=== PATIENT | male | born 1960 | race Caucasian/White ===

== ENCOUNTER 2018-03-05 14:58 | Emergency (ER) | payer OTHER | END 2018-03-05 15:21 | disposition home or self-care (01) | LOC: ERS 14:58 | DX: S60.466A Insect bite (nonvenomous) of right little finger, initial encounter (principal); W57.XXXA Bitten or stung by nonvenomous insect and other nonvenomous arthropods, initial encounter | CPT/HCPCS: 99282 ==

== ENCOUNTER 2020-02-07 00:14 | Emergency (ER) | payer OTHER, SELFPAY ==
[2020-02-07] MEDS ORDERED: Proparacaine 0.5% Opth 15 ML BOT ONE (00:22)
[2020-02-07] MEDS ORDERED: Fluorescein Opthalmic Strip ONE (00:22)
== END 2020-02-07 00:40 | disposition home or self-care (01) ==
LOC: ERS 00:14
DX: T15.12XA Foreign body in conjunctival sac, left eye, initial encounter (principal); I48.91 Unspecified atrial fibrillation; F43.10 Post-traumatic stress disorder, unspecified
CPT/HCPCS: 99283

== ENCOUNTER 2023-10-11 14:10 | Outpatient (CLI) | payer OTHER | END 2023-10-11 14:11 | disposition home or self-care (01) | LOC: BICMRI 14:10 | PROVIDERS: ATTEND Orthopaedic Surgery | DX: S49.91XA Unspecified injury of right shoulder and upper arm, initial encounter (principal); S46.211A Strain of muscle, fascia and tendon of other parts of biceps, right arm, initial encounter; S43.401A Unspecified sprain of right shoulder joint, initial encounter | CPT/HCPCS: 70210 ==

== ENCOUNTER 2023-11-09 16:24 | Outpatient (CLI) | payer OTHER ==
[2023-11-09 17:10] LABS: #Eosinphils 0.1 10x3/uL (0.0-0.5); #Monocytes 0.8 10x3/uL (0.0-1.1); #Neutrophils 4.3 10x3/uL (1.5-8.4); %Basophils 0.3 % (0.0-2.0); %Lymphocytes 26.5 % (18.0-47.0); %Monocytes 10.5 % (0.0-10.0); %Neutrophils 60.6 % (40.0-75.0); Hemoglobin 16.8 g/dL (13.5-17.5); Mean Corpuscular Hemoglobin 32.2 pg (27.0-33.0); Mean Corpuscular Volume 92.1 fl (81.2-95.1); Mean Platelet Volume 10.6 fl (7.4-10.4); Platelet Count 191 10x3/uL (150-450); RBC Distribution Width 12.1 % (11.5-14.5); Red Blood Cell (RBC) Count 5.21 10x6/uL (4.32-5.72); White Blood Cell (WBC) Count 7.2 10x3/uL (3.5-10.5)
[2023-11-09 17:54] LABS: Anion Gap 12 mmol/L (10-20); BUN (Urea Nitrogen) 12 mg/dL (8.4-25.7); Calc. Creatinine Clearance 0 mL/min (70-130); Calcium 8.9 mg/dL (7.8-10.44); Carbon Dioxide 23 mmol/L (23-31); Chloride 103 mmol/L (98-107); Estimated GFR 86; Glucose 83 mg/dL (80-115); Potassium 4.3 mmol/L (3.5-5.1); Sodium 134 mmol/L (136-145)
== END 2023-11-09 16:25 | disposition home or self-care (01) ==
LOC: LABBT 16:24
PROVIDERS: ATTEND Orthopaedic Surgery
DX: Z01.818 Encounter for other preprocedural examination (principal); S46.011A Strain of muscle(s) and tendon(s) of the rotator cuff of right shoulder, initial encounter; M75.21 Bicipital tendinitis, right shoulder
CPT/HCPCS: 80048; 85025; 93005; 93010

== ENCOUNTER 2023-11-25 09:34 | Day surgery (SDC) | payer OTHER ==
[2023-11-09 16:57] VITALS: BMI 27.6
[2023-11-25] MEDS ORDERED: Ropivacaine 0.5% HCl/PF (150 MG/30 ML VIAL) ONE (10:50)
[2023-11-25] MEDS ORDERED: fentaNYL 50 mcg/mL 1 mL Vial ONE ×3 (10:50→12:38)
[2023-11-25] MEDS ORDERED: Midazolam HCl 2 mg/2 ml Vial ONE (10:50)
[2023-11-25] MEDS ORDERED: EPINEPHrine 1 MG/ML VIAL ONE (11:42)
[2023-11-25] MEDS ORDERED: Bupivacaine 0.25% HCL 30 ML VIAL ONE (11:42)
[2023-11-25] MEDS ORDERED: CEFAZOLIN 2 GM VIAL ONE (12:06)
[2023-11-25] MEDS ORDERED: Sodium Chloride 0.9% 100 ML ONE (12:06)
[2023-11-25] MEDS ORDERED: fentaNYL 50 mcg/mL 1 mL Vial SLOW IVP PRN (12:20)
[2023-11-25] MEDS ORDERED: Lidocaine 2% PF 5 ML VIAL ONE (12:21)
[2023-11-25] MEDS ORDERED: PROPOFOL 20 ML ONE (12:21)
[2023-11-25] MEDS ORDERED: ePHEDrine Sulfate 50 MG/10 ML VIAL ONE (12:28)
[2023-11-25] MEDS ORDERED: Dexamethasone 20 MG/5 ML VIAL ONE (12:29)
[2023-11-25] MEDS ORDERED: PHENYLEPHRINE-NS 100 MCG/ML 10 ML SYRINGE ONE (12:29)
[2023-11-25] MEDS ORDERED: Ropivacaine 0.2% 550 ML 550 ML NERVE BLCK SCH (12:30)
[2023-11-25] MEDS ORDERED: Zolpidem Tartrate 5 MG TAB PO PRN (12:30)
[2023-11-25] MEDS ORDERED: Ondansetron PF 4 MG/2 ML Vial IVP PRN (12:30)
[2023-11-25] MEDS ORDERED: HYDROcodone/Acetaminophen 10/325 mg Tablet PO PRN ×2 (12:30)
[2023-11-25] MEDS ORDERED: traMADol HCl 50 MG TAB PO PRN ×2 (12:30)
[2023-11-25] MEDS ORDERED: Promethazine HCl 25 MG/ML VIAL IM PRN (12:30)
[2023-11-25] MEDS ORDERED: HYDROcodone/Acetaminophen 5/325 mg Tablet ONE ×2 (15:36→15:39)
[2023-11-25] MEDS ORDERED: Ketorolac Tromethamine 30 MG (1 mL) VIAL IVP SCH (18:00)
== END 2023-11-25 16:18 | disposition home or self-care (01) ==
LOC: SDC 09:34
PROVIDERS: ATTEND Orthopaedic Surgery
PROC: 0LS34ZZ Reposition Right Upper Arm Tendon, Percutaneous Endoscopic Approach (ICD-10-PCS; principal; 2023-11-25)
DX: S46.011D Strain of muscle(s) and tendon(s) of the rotator cuff of right shoulder, subsequent encounter (principal); M75.21 Bicipital tendinitis, right shoulder; J44.9 Chronic obstructive pulmonary disease, unspecified; I48.91 Unspecified atrial fibrillation; J18.9 Pneumonia, unspecified organism; Z79.899 Other long term (current) drug therapy; X58.XXXD Exposure to other specified factors, subsequent encounter
CPT/HCPCS: A4306; C1713; J0171; J1100; J2001; J2250; J2704; J2795; J3010; J3490; S0020

== ENCOUNTER 2024-06-02 14:04 | Outpatient (CLI) | payer OTHER | END 2024-06-02 14:05 | disposition home or self-care (01) | LOC: BICMRI 14:04 | PROVIDERS: ATTEND Orthopaedic Surgery | DX: Z47.89 Encounter for other orthopedic aftercare (principal); M19.011 Primary osteoarthritis, right shoulder; M75.111 Incomplete rotator cuff tear or rupture of right shoulder, not specified as traumatic; Z98.890 Other specified postprocedural states ==

== ENCOUNTER 2025-10-18 10:14 | Outpatient (CLI) | payer OTHER | END 2025-10-18 10:15 | disposition home or self-care (01) | LOC: BICRAD 10:14 | PROVIDERS: ATTEND Chiropractor | DX: M19.011 Primary osteoarthritis, right shoulder (principal); M19.012 Primary osteoarthritis, left shoulder; M75.31 Calcific tendinitis of right shoulder ==

== ENCOUNTER 2025-11-07 20:32 | Emergency (ER) | payer OTHER ==
[2025-11-07] MEDS ORDERED: Proparacaine 0.5% Opth 15 ML BOT ONE (21:24)
[2025-11-07] MEDS ORDERED: Fluorescein Opthalmic Strip ONE (21:36)
== END 2025-11-07 22:13 | disposition home or self-care (01) ==
LOC: ERS 20:32
DX: S05.01XA Injury of conjunctiva and corneal abrasion without foreign body, right eye, initial encounter (principal); I48.91 Unspecified atrial fibrillation; X58.XXXA Exposure to other specified factors, initial encounter